=== PATIENT | male | born 1970 | race Caucasian/White ===

== ENCOUNTER 2017-01-26 10:50 | Emergency (ER) | payer MEDICAID ==
[~2017-01-26] VITALS: Ht 182.9 cm; Wt 99.8 kg
[~2017-01-26 10:50] MED LIST: ATEN25TA7 PO; ATOR20TA PO; BENA20TA PO; DARU800T PO; DOLU50TA PO; EMTR1TAB12 PO; FENO160T9 PO; FLUC200T PO; NOR100 PO; SULF1TAB12 PO; TRAM50TA94 PO; VITAMIN D3 PO; [UNRECOGNIZED DRUG - CODE] PO
--- NOTE | 2017-01-26 11:10 | NUR ---
Patient to bed 07.
[2017-01-26 11:12] VITALS: BP 144/87
--- NOTE | 2017-01-26 11:21 | NUR ---
46/M PRESENT TO ER C/O ABDOMINAL PAIN x 9 DAYS. PAIN 7/10 ACHING NON-RADIATING. PT STATES HE HAS NAUSEA AND DIARRHEA BUT DENIES VOMITING. AAOx4, PERRLA, BREATHING EVEN AND EFFORTLESS. ERMD NOTIFIED OF PATIENT STATUS.
--- NOTE | 2017-01-26 11:23 | NUR ---
Patient being evaluated by physician at bedside.
[2017-01-26] MEDS ORDERED: DICYCLOMINE HCL LIQUID 20 MG, ALUMINUM HYD/MAG/SIMETHICONE 30 ML, LIDOCAINE VISCOUS 2% ... PO ONE ×3 (11:25)
[2017-01-26] MEDS ORDERED: ONDANSETRON 4 MG ODT PO ONE (11:25)
[2017-01-26 12:13] VITALS: BP 132/82
--- NOTE | 2017-01-26 12:13 | NUR ---
Patient discharged with v/s stable. Written and verbal after care instructions given and explained. Patient alert, oriented and verbalized understanding of instructions. Ambulatory with steady gait. All questions addressed prior to discharge. ID band removed. Patient advised to follow up with PMD. Rx of PRILOSEC 40MG AND ZOFRAN 8MG given. Patient educated on indication of medication including possible reaction and side effects. Opportunity to ask questions provided and answered.
== END 2017-01-26 12:13 | disposition home or self-care (01) ==
LOC: MED 10:50
DX: R10.13 Epigastric pain (principal); R11.0 Nausea; E11.9 Type 2 diabetes mellitus without complications; I10 Essential (primary) hypertension; Z88.8 Allergy status to other drugs, medicaments and biological substances; Z21 Asymptomatic human immunodeficiency virus [HIV] infection status
CPT/HCPCS: 81002; 99283; S0119

== ENCOUNTER 2022-11-10 07:10 | Emergency (ER) | payer MEDICAID ==
[~2022-11-10] VITALS: Ht 182.9 cm; Wt 95.3 kg
[~2022-11-10 07:10] MED LIST changes: +CALC-105 PO; +SULF-954 PO; -SULF1TAB12 PO; +TRAM-748 PO; -TRAM50TA94 PO; -[UNRECOGNIZED DRUG - CODE] PO
[2022-11-10 07:20] VITALS: BP 137/90
--- NOTE | 2022-11-10 07:20 | NUR ---
to bed ambulatory
--- NOTE | 2022-11-10 07:37 | NUR ---
Patient being evaluated by physician at bedside.
[2022-11-10] MEDS ORDERED: NACL 0.9% 1,000 ML IV ONE (07:50)
[2022-11-10 08:15] LABS: BASOPHILS % (AUTO) 0.5 % (0.0-2.0); EOSINOPHILS % (AUTO) 0.2 % (0.0-4.0); HEMATOCRIT 44.3 % (36-52); HEMOGLOBIN 15.2 g/dL (12.0-18.0); LYMPHOCYTES # (AUTO) 1.5 K/uL (2.0-11.5); LYMPHOCYTES % (AUTO) 29.5 % (20.5-51.1); MEAN CORPUSCULAR HEMOGLOBIN 33 pg (27-31); MEAN CORPUSCULAR HGB CONC 34 g/dL (33-37); MEAN CORPUSCULAR VOLUME 97.6 fL (80-94); MONOCYTES # (AUTO) 0.7 K/uL (0.8-1.0); MONOCYTES % (AUTO) 13.5 % (1.7-9.3); NEUTROPHILS # (AUTO) 2.8 K/uL (1.8-7.7); NEUTROPHILS % (AUTO) 56.3 % (42.2-75.2); PLATELET COUNT (AUTO) 197 K/uL (140-450); RED BLOOD CELL COUNT(AUTO) 4.54 MIL/uL (4.20-6.10); RED CELL DISTRIBUTION WIDTH 12.9 % (11.6-13.7)
--- NOTE | 2022-11-10 08:15 | NUR ---
IV SL INSERTED. NS0/9% BOLUS STARTED.
[2022-11-10 08:18] LABS: APPEARANCE,URINE CLEAR (CLEAR); BILIRUBIN,URINE NEGATIVE (NEGATIVE); BLOOD, URINE NEGATIVE (NEGATIVE); COLOR,URINE YELLOW (YELLOW); LEUKOCYTE ESTERASE ,URINE NEGATIVE (NEGATIVE); NITRITE, URINE NEGATIVE (NEGATIVE); UGLUCOSE 3+ (NEGATIVE)
[2022-11-10 08:48] LABS: ALBUMIN 4.2 g/dL (3.4-5.0); ANION GAP 17.9 (8-16); CARBON DIOXIDE 23.7 mmol/L (21-32); CREATININE 1.2 mg/dL (0.6-1.3); POTASSIUM 4.6 mmol/L (3.5-5.1); TOTAL BILIRUBIN 0.4 mg/dL (0.0-1.0)
[2022-11-10] MEDS ORDERED: METOCLOPRAMIDE 10 MG TAB PO ONE ×2 (08:55→10:15)
[2022-11-10] MEDS ORDERED: FAMOTIDINE 20 MG TAB PO ONE ×2 (08:55→10:15)
[2022-11-10] MEDS ORDERED: ALUMINUM HYD/MAG/SIMETHICONE 30 ML UDC PO ONE ×2 (08:55→10:15)
[2022-11-10 09:24] LABS: RBC,URINE 0 /HPF (0-5)
[2022-11-10 09:25] LABS: CALCIUM OXALATE CRYSTALS,UR None Seen /HPF (None Seen); COARSE GRANULAR CASTS,URINE None Seen /LPF (None Seen); FINE GRANULAR CASTS,URINE None Seen /LPF (None Seen); HYALINE CASTS, URINE None Seen /LPF (None Seen); OTHER CASTS, URINE None Seen /LPF (None Seen); OTHER CRYSTALS,URINE None Seen /HPF (None Seen); RED BLOOD CELL CASTS,URINE None Seen /LPF (None Seen); TRICHOMONAS,URINE None Seen /HPF (None Seen); TRIPLE PHOSPHATE CRYSTAL,UR None Seen /HPF (None Seen); URIC ACID CRYSTALS,URINE None Seen /HPF (None Seen); URINE AMORPHOUS URATE None Seen /HPF (None Seen); WAXY CASTS,URINE None Seen /LPF (None Seen); YEAST,URINE None Seen /HPF (None Seen)
[2022-11-10] MEDS ORDERED: METF-346 PO (10:03)
[2022-11-10] MEDS ORDERED: OMEP40EC23 PO (10:03)
--- NOTE | 2022-11-10 10:52 | NUR ---
Patient discharged with v/s stable. Written and verbal after care instructions given and explained. Patient alert, oriented and verbalized understanding of instructions. Ambulatory with steady gait. All questions addressed prior to discharge. ID band removed. Patient advised to follow up with PMD. Rx of METFORMINE AND OMEPRAZOLE given. Patient educated on indication of medication including possible reaction and side effects. Opportunity to ask questions provided and answered.
[2022-11-10 10:54] VITALS: BP 115/75
== END 2022-11-10 10:52 | disposition home or self-care (01) ==
LOC: MED 07:10
DX: E11.65 Type 2 diabetes mellitus with hyperglycemia (principal); R10.9 Unspecified abdominal pain; I10 Essential (primary) hypertension; Z79.4 Long term (current) use of insulin; Z79.899 Other long term (current) drug therapy
CPT/HCPCS: 36415; 80053; 81001; 83690; 85025; 93005; 96360; 99284; J7030; J8597; Q0163